=== PATIENT | female | born 1960 | race Caucasian/White ===

== ENCOUNTER 2020-06-13 06:10 | Observation (INO) ==
[2020-06-13] MEDS ORDERED: Isovue-370 500 ML BOTTLE IVP ONE (06:14)
[2020-06-13 06:30] LABS: Hematocrit 41.1 % (35.3-44.9); Hemoglobin 13.1 g/dL (11.5-15.4); Mean Corpuscular HGB Conc 31.9 g/dL (31.6-35.5); Mean Corpuscular Hemoglobin 30.8 pg (28.0-33.3); Mean Corpuscular Volume 96.7 fL (83.0-100.0); Platelet Count 310 K/mcL (140-400); Red Blood Count 4.25 M/mcL (3.82-4.97); Red Cell Distribution Width 12.2 % (11.5-14.5); White Blood Count 13.3 K/mcL (4.3-11.1)
[2020-06-13 06:39] LABS: INR 0.8; Prothrombin Time 9.7 Seconds (9.4-12.1)
[2020-06-13 06:42] LABS: Activated Partial Thrombo Time 24.6 Seconds (26.0-36.0)
[2020-06-13 06:46] LABS: BUN/Creatinine Ratio 22 (6-26); Blood Urea Nitrogen 17 mg/dL (6-20); Calcium 9.4 mg/dL (8.6-10.3); Carbon Dioxide 26 mEq/L (23-29); Chloride 105 mEq/L (98-107); Creatine Kinase 57 Units/L (30-223); Ethanol < 10 mg/dL (Less than 10); Glucose 68 mg/dL (70-105); Osmolality,Calculated 288 (280-300); Potassium 3.5 mEq/L (3.5-5.1); Sodium 139 mEq/L (136-145); eGFR For African Americans > 60 (> 60); eGFR For Non-African Americans > 60 (> 60)
[2020-06-13 06:48] LABS: Troponin I < 0.03 ng/mL (< 0.04)
[2020-06-13] MEDS ORDERED: Aspirin 81 MG TAB.CHEW PO ONE (06:57)
[2020-06-13] MEDS ORDERED: Naloxone 0.4 MG/ML INJ IVP PRN (07:19)
[2020-06-13] MEDS ORDERED: Gadolinium Contrast Agent (WT Based) IV PRN (07:25)
[2020-06-13] MEDS ORDERED: Ipratropium/Albuterol Neb 3 ML IH PRN (07:27)
[2020-06-13] MEDS ORDERED: *HR* Metoprolol 5 MG/5 ML VIAL IVP PRN (07:28)
[2020-06-13] MEDS ORDERED: Perflutren Lipid Microsphere 1.3 ML in 0.9 % Sodium Chloride 8.7 ML IVP PRN (07:31)
[2020-06-13 08:28] LABS: Bilirubin,Urine Negative (Negative); Blood,Urine Negative (Negative); Clarity,Urine Clear (Clear); Color,Urine Colorless (Yellow); Glucose,Urine (UA) Normal (Normal); Ketones,Urine Negative (Negative); Leukocyte Esterase,Urine Moderate (Negative); Nitrite,Urine Negative (Negative); Protein,Urine Negative (Neg-Trace); RBC,Urine 0-3 per hpf (0-3); Specific Gravity,Urine 1.026 (1.010-1.025); Squamous Epithelial Cell,Urine Few per hpf (None-Few); Urobilinogen,Urine Normal (Normal)
[2020-06-13] MEDS ORDERED: Metoprolol XL (24 HR) Succ 50 MG TAB.ER.24H PO SCH ×2 (09:00→21:00)
[2020-06-13 09:41] LABS: Estimated Average Glucose 114 mg/dl; Hemoglobin A1C 5.6 %
[2020-06-13] MEDS ORDERED: 0.9 % Sodium Chloride 500 ML IVC SCH (09:45)
[2020-06-13 11:00] LABS: Alanine Aminotransferase 14 Units/L (7-52); Albumin 4.5 g/dL (3.5-5.7); Albumin/Globulin Ratio 1.8 (1.1-2.2); Alkaline Phosphatase 65 Units/L (34-104); Aspartate Amino Transferase 15 Units/L (13-39); Bilirubin,Direct 0.1 mg/dL (0.0-0.2); Bilirubin,Indirect 0.2 mg/dL (0.0-1.0); Bilirubin,Total 0.3 mg/dL (0.3-1.0); Chol/HDL Ratio 2.6 (0-4.9); Cholesterol 217 mg/dL (< 200); Globulin 2.5 g/dL (2.4-3.5); HDL Cholesterol 85 mg/dL (40-59); LDL Cholesterol,Calculated 106 mg/dL (< 100); Triglycerides 132 mg/dL (< 150)
[2020-06-13 11:12] LABS: Amphetamine Screen,Urine Negative ng/mL (Cutoff=1000); Barbiturate Screen,Urine Negative ng/mL (Cutoff=200); Benzodiazepines Screen,Urine Negative ng/mL (Cutoff=200); Cannabinoid Screen,Urine Negative ng/mL (Cutoff = 50); Cocaine Screen,Urine Negative ng/mL (Cutoff= 300); Opiate Screen,Urine Negative ng/mL (Cutoff=300); Phencyclidine Screen,Urine Negative ng/mL (Cutoff=25)
[2020-06-13] MEDS: lisinopriL 5 MG TABLET PO SCH (12:08)
[2020-06-13 12:09] LABS: Basophils # 0.1 K/mcL (0.0-0.2); Eosinophils # 0.3 K/mcL (0.0-0.6); Eosinophils % 2.8 %; Hematocrit 40.7 % (35.3-44.9); Hemoglobin 13.1 g/dL (11.5-15.4); Immature Granulocytes % 0.5 % (0-4); Lymphocytes # 2.8 K/mcL (0.6-4.6); Lymphocytes % 30.2 %; Mean Corpuscular HGB Conc 32.2 g/dL (31.6-35.5); Mean Corpuscular Hemoglobin 30.8 pg (28.0-33.3); Mean Corpuscular Volume 95.8 fL (83.0-100.0); Mean Platelet Volume 9.1 fL (9.4-12.4); Monocytes # 0.6 K/mcL (0.0-1.3); Monocytes % 6.4 %; Neutrophils # 5.4 K/mcL (1.6-8.9); Platelet Count 257 K/mcL (140-400); Red Blood Count 4.25 M/mcL (3.82-4.97); Red Cell Distribution Width 12.2 % (11.5-14.5); Segmented Neutrophils % 59.1 %; White Blood Count 9.2 K/mcL (4.3-11.1)
[2020-06-13] MEDS: Acetaminophen 325 MG TABLET PO PRN (20:14)
[2020-06-13] MEDS ORDERED: Melatonin 3 MG TABLET PO PRN (21:00)
[2020-06-14] MEDS: Acetaminophen 325 MG TABLET PO PRN ×2 (03:17→10:10)
[2020-06-14] MEDS ORDERED: *HR* Enoxaparin 40 MG/0.4 ML SYRINGE SQ SCH (06:00)
[2020-06-14] MEDS ORDERED: PARoxetine 10 MG TABLET PO SCH (09:00)
[2020-06-14] MEDS: lisinopriL 5 MG TABLET PO SCH (10:11)
[2020-06-14 11:32] VITALS: BP 104/70
[2020-06-14] MEDS ORDERED: Budesonide/Formoterol 160/4.5 1 PUFF INH IH SCH (22:00)
[2020-06-15] MEDS ORDERED: PARoxetine 20 MG TABLET PO SCH (09:00)
[2020-06-15] MEDS ORDERED: Metoprolol XL (24 HR) Succ 50 MG TAB.ER.24H PO SCH (09:00)
== END 2020-06-14 16:04 | disposition home or self-care (01) ==
LOC: EMEROOARM 06:10 → 3ANU 06:10 → MERGE 07:38 → SUATTDRO 07:38 → 3ANU 08:42
PROVIDERS: ADMIT Student in an Organized Health Care Education/Training Program; ATTEND Internal Medicine